=== PATIENT | male | born 1950 | race Caucasian/White ===

== ENCOUNTER 2016-08-20 17:31 | Emergency (ER) | payer MEDICARE, OTHER ==
[~2016-08-20] VITALS: Ht 177.8 cm; Wt 79.5 kg
[~2016-08-20 17:31] MED LIST: ALBU8.5H IH; ATOR40TA28 PO; DSS100 PO; FOSI10 PO; INSLAN SQ; INSU100C6 SQ; METF500T4 PO; METO-325 PO; MIRT15 PO; TEMA15 PO; THERAGRAN M1 TA1 PO; TIOT185 IH; WARF2 PO
[2016-08-20 18:40] LABS: BASOPHILS % (AUTO) 0.5 % (0.0-2.0); EOSINOPHILS % (AUTO) 0.5 % (1.0-6.0); HEMATOCRIT 37.3 % (41-53); HEMOGLOBIN 11.6 g/dL (13.5-17.5); LYMPHOCYTES # (AUTO) 1.4 K/uL (1.0-4.8); LYMPHOCYTES % (AUTO) 10.8 % (22.0-44.0); MEAN CORPUSCULAR HEMOGLOBIN 25.8 pg (26.0-34.0); MEAN CORPUSCULAR VOLUME 83 fL (80-100); MONOCYTES # (AUTO) 0.5 K/uL (0.1-1.0); MONOCYTES % (AUTO) 4.2 % (2.0-9.0); NEUTROPHILS # (AUTO) 10.7 K/uL (1.8-7.7); PLATELET COUNT (AUTO) 354 K/uL (150-450); RED BLOOD CELL COUNT(AUTO) 4.49 MIL/uL (4.50-5.90); RED CELL DISTRIBUTION WIDTH 14.4 % (11.5-14.5); WHITE BLOOD COUNT (AUTO) 12.8 K/uL (4.5-11.0)
[2016-08-20 19:14] LABS: ANION GAP 5 mmol/L (8-16); CALCIUM, TOTAL 8.4 mg/dL (8.8-10.5); CARBON DIOXIDE 34 mmol/L (22-29); CHLORIDE 100 mmol/L (98-107); GLOMERULAR FILTR. RATE CALC > 60 mL/min (>60); POTASSIUM 3.5 mmol/L (3.5-5.1); SODIUM SERUM 139 mmol/L (136-145); UREA NITROGEN, BLOOD 9 mg/dL (7-18)
[2016-08-20 19:20] LABS: ALANINE AMINOTRANSFERASE 16 U/L (12-78); ALBUMIN 2.1 g/dL (3.4-5.0); ASPARTATE AMINOTRANSFERASE 15 U/L (15-37); BILIRUBIN,TOTAL 0.3 mg/dL (0.1-1.0); TOTAL PROTEIN, SERUM 6.8 g/dL (6.4-8.2)
[2016-08-20 19:39] VITALS: BP 104/62
== END 2016-08-20 21:03 | disposition home or self-care (01) ==
LOC: EMS 17:38
DX: J44.9 Chronic obstructive pulmonary disease, unspecified (principal); F32.9 Major depressive disorder, single episode, unspecified; E11.9 Type 2 diabetes mellitus without complications; I10 Essential (primary) hypertension; R47.01 Aphasia; E78.00 Pure hypercholesterolemia, unspecified; I48.91 Unspecified atrial fibrillation; Z86.73 Personal history of transient ischemic attack (TIA), and cerebral infarction without residual deficits; Z79.4 Long term (current) use of insulin
CPT/HCPCS: 36415; 80053; 85025; 99284; G0480; 82962

== ENCOUNTER 2019-05-25 12:44 | Inpatient (IN) | payer MEDICARE, OTHER ==
[~2019-05-25] VITALS: Ht 175.3 cm; Wt 71.2 kg
[~2019-05-25 12:44] MED LIST changes: -ALBU8.5H IH; +ALBU8.5H8 IH; -FOSI10 PO; +FOSI10TA6 PO; +METF-960 PO; -METF500T4 PO; -METO-325 PO; +METO-558 PO; +MIRT-92 PO; -MIRT15 PO; -TEMA15 PO; +TEMA15CA PO
[2019-05-25 12:59] LABS: BASOPHILS % (AUTO) 0.6 % (0.0-2.0); EOSINOPHILS % (AUTO) 0.3 % (1.0-6.0); HEMATOCRIT 36.4 % (41-53); HEMOGLOBIN 10.9 g/dL (13.5-17.5); LYMPHOCYTES # (AUTO) 1.5 K/uL (1.0-4.8); MEAN CORPUSCULAR HEMOGLOBIN 23.5 pg (26.0-34.0); MEAN CORPUSCULAR HGB CONC 29.9 G/dL (31.0-37.0); MEAN CORPUSCULAR VOLUME 79 fL (80-100); MONOCYTES # (AUTO) 0.6 K/uL (0.1-1.0); MONOCYTES % (AUTO) 6.2 % (2.0-9.0); NEUTROPHILS # (AUTO) 7.4 K/uL (1.8-7.7); NEUTROPHILS % (AUTO) 76.9 % (40.0-70.0); PLATELET COUNT (AUTO) 187 K/uL (150-450); RED BLOOD CELL COUNT(AUTO) 4.63 MIL/uL (4.50-5.90); RED CELL DISTRIBUTION WIDTH 19.4 % (11.5-14.5)
[2019-05-25 13:13] LABS: ANION GAP 6 mmol/L (8-16); CALCIUM, TOTAL 9.8 mg/dL (8.8-10.5); CARBON DIOXIDE 33 mmol/L (22-29); CHLORIDE 116 mmol/L (98-107); CREATININE 0.93 mg/dL (0.60-1.30); GLOMERULAR FILTR. RATE CALC > 60 mL/min (>60); GLUCOSE,RANDOM 237 mg/dL (70-110); POTASSIUM 4.1 mmol/L (3.5-5.1); SODIUM SERUM 155 mmol/L (136-145); UREA NITROGEN, BLOOD 23 mg/dL (7-18)
[2019-05-25 13:14] LABS: INR 1.1 (0.9-1.1); PROTHROMBIN TIME 11.4 SEC (9.4-11.6)
[2019-05-25 13:19] LABS: ALANINE AMINOTRANSFERASE 19 U/L (12-78); ALKALINE PHOSPHATASE 88 U/L (46-116); ASPARTATE AMINOTRANSFERASE 13 U/L (15-37); BILIRUBIN,TOTAL 0.4 mg/dL (0.1-1.0); TOTAL PROTEIN, SERUM 7.2 g/dL (6.4-8.2)
[2019-05-25] MEDS ORDERED: LORA-999 PO (13:20)
[2019-05-25] MEDS ORDERED: BISA10SU11 PR (13:20)
[2019-05-25] MEDS ORDERED: APIX5TAB PO (13:20)
[2019-05-25] MEDS ORDERED: OLAN2.5T3 PO (13:20)
[2019-05-25] MEDS ORDERED: CITA10TA68 PO (13:20)
[2019-05-25] MEDS ORDERED: FOSI20TA98 PO (13:28)
[2019-05-25] MEDS ORDERED: CITA-106 PO (13:28)
[2019-05-25] MEDS ORDERED: MULT-29 PO (13:28)
[2019-05-25] MEDS ORDERED: DOCU-275 PO (13:28)
[2019-05-25] MEDS ORDERED: INSU100V42 SQ (13:28)
[2019-05-25] MEDS ORDERED: SODIUM CHLORIDE 0.9% 1,950 ML IV ONE (13:30)
[2019-05-25] MEDS ORDERED: IOVERSOL 350 MG/ML 100 ML VIAL ONE (13:49)
[2019-05-25] MEDS ORDERED: SODIUM CHLORIDE 0.9% 100 ML ONE (13:49)
[2019-05-25] MEDS ORDERED: LEVOFLOXACIN 750 MG/D5% WATER 150 ML IV ONE (14:30)
[2019-05-25 14:50] LABS: LACTIC ACID 2.9 mmol/L (0.4-2.0)
[2019-05-25 15:55] LABS: APPEARANCE,URINE TURBID (CLEAR); BILIRUBIN,URINE NEGATIVE (NEGATIVE); GLUCOSE, URINE (UA) NEGATIVE (NEGATIVE); KETONES,URINE NEGATIVE (NEGATIVE); LEUKOCYTE ESTERASE ,URINE LARGE (NEGATIVE); NITRATE,URINE POSITIVE (NEGATIVE); OCCULT BLOOD,URINE LARGE (NEGATIVE); PH,URINE 5.5 (5.0-8.0); PROTEIN,URINE SEE CONFIRM (NEGATIVE)
[2019-05-25 16:00] LABS: AMPHET/METH SCREEN,URINE NEGATIVE (NEGATIVE); BARBITURATE SCREEN, URINE NEGATIVE (NEGATIVE); BENZODIAZEPINES SCREEN,URINE NEGATIVE (NEGATIVE); CANNABINOID SCREEN,URINE NEGATIVE (NEGATIVE); COCAINE SCREEN,URINE NEGATIVE (NEGATIVE); METHADONE SCREEN, URINE NEGATIVE (NEGATIVE); OPIATE SCREEN,URINE NEGATIVE (NEGATIVE)
[2019-05-25 16:06] LABS: PHENCYCLIDINE SCREEN,URINE NEGATIVE (NEGATIVE)
[2019-05-25 16:10] LABS: SULFOSALICYLIC ACID,URINE 3+ (Negative)
[2019-05-25 16:12] LABS: BACTERIA,URINE Moderate /HPF (None Seen); CALCIUM OXALATE CRYSTALS,UR Few /LPF (None Seen); SQUAMOUS EPITHELIAL CELL,UR Few /LPF (None Seen); WBC,URINE 51-100 /HPF (0-5)
[2019-05-25 21:30] VITALS: BP 118/57
[2019-05-25] MEDS ORDERED: ALBUTEROL SULFATE HFA 90 MCG/PUFF 8 GM INHALER IH PRN ×2 (21:30)
[2019-05-25] MEDS ORDERED: MAGNESIUM HYDROXIDE SUSPENSION 30 ML UDCUP PO PRN (21:30)
[2019-05-25] MEDS ORDERED: MORPHINE SULFATE 2 MG/ML SYRINGE IVP PRN (21:30)
[2019-05-25] MEDS ORDERED: BISACODYL 10 MG RECTAL RECTAL SUPPOSITORY PR PRN (21:30)
[2019-05-25] MEDS ORDERED: HYDROCODONE/ACETAMINOPHEN 5-325 MG TABLET PO PRN (21:30)
[2019-05-25] MEDS ORDERED: ACETAMINOPHEN 325 MG TABLET PO PRN (21:30)
[2019-05-25] MEDS ORDERED: DEXTROSE 5%-WATER 500 ML IV ONE (21:30)
[2019-05-25] MEDS ORDERED: *CLINICAL-LEVOFLOXACIN IVPB DOSING CLINICAL ONE (21:30)
[2019-05-25] MEDS ORDERED: ZOLPIDEM TARTRATE 5 MG TABLET PO PRN (21:30)
[2019-05-25] MEDS ORDERED: ONDANSETRON HCL 4 MG/2 ML VIAL IVP PRN (21:30)
[2019-05-25 23:48] VITALS: BP 115/63
[2019-05-26] MEDS ORDERED: HEPARIN SODIUM,PORCINE 5,000 UNITS/ML VIAL SQ SCH
[2019-05-26 04:50] VITALS: BP 104/64
[2019-05-26 07:08] LABS: BASOPHILS % (AUTO) 0.3 % (0.0-2.0); EOSINOPHILS % (AUTO) 0.4 % (1.0-6.0); HEMATOCRIT 31.7 % (41-53); HEMOGLOBIN 9.6 g/dL (13.5-17.5); LYMPHOCYTES % (AUTO) 10.2 % (22.0-44.0); MEAN CORPUSCULAR HEMOGLOBIN 23.6 pg (26.0-34.0); MEAN CORPUSCULAR HGB CONC 30.3 G/dL (31.0-37.0); MEAN CORPUSCULAR VOLUME 78 fL (80-100); MONOCYTES # (AUTO) 0.8 K/uL (0.1-1.0); MONOCYTES % (AUTO) 8.1 % (2.0-9.0); NEUTROPHILS # (AUTO) 7.8 K/uL (1.8-7.7); PLATELET COUNT (AUTO) 164 K/uL (150-450); RED BLOOD CELL COUNT(AUTO) 4.08 MIL/uL (4.50-5.90); RED CELL DISTRIBUTION WIDTH 19.5 % (11.5-14.5)
[2019-05-26 07:16] LABS: ANION GAP 7 mmol/L (8-16); CALCIUM, TOTAL 8.1 mg/dL (8.8-10.5); CARBON DIOXIDE 30 mmol/L (22-29); CHLORIDE 117 mmol/L (98-107); CREATININE 0.66 mg/dL (0.60-1.30); GLOMERULAR FILTR. RATE CALC > 60 mL/min (>60); GLUCOSE,RANDOM 216 mg/dL (70-110); POTASSIUM 3.2 mmol/L (3.5-5.1); SODIUM SERUM 154 mmol/L (136-145); UREA NITROGEN, BLOOD 21 mg/dL (7-18)
[2019-05-26 08:34] VITALS: BP 129/73
[2019-05-26 11:05] VITALS: BP 119/76
[2019-05-26 11:14] LABS: PHOSPHORUS 2.9 mg/dL (2.5-4.9)
[2019-05-26] MEDS: DOCUSATE SODIUM 100 MG CAPSULE PO SCH ×2 (11:33→21:53)
[2019-05-26] MEDS: METOPROLOL SUCCINATE 50 MG ER TABLET PO SCH (11:33)
[2019-05-26] MEDS: PANTOPRAZOLE SODIUM 40 MG DR TABLET PO SCH (11:33)
[2019-05-26] MEDS: APIXABAN 5 MG TABLET PO SCH ×2 (11:33→21:53)
[2019-05-26] MEDS: ATORVASTATIN CALCIUM 40 MG TABLET PO SCH (11:34)
[2019-05-26 14:04] LABS: GLUCOMETER DEV NAME(LOC) 5N.1; GLUCOSE,POINT OF CARE 214 MG/DL (70-110)
[2019-05-26 15:10] VITALS: BP 113/68
[2019-05-26] MEDS: LEVOFLOXACIN 750 MG/D5% WATER 150 ML IV SCH (15:15)
[2019-05-26 19:58] VITALS: BP 107/63
[2019-05-26] MEDS ORDERED: MAGNESIUM SULFATE 2 GM/WATER 50 ML IV PRN (21:00)
[2019-05-26] MEDS ORDERED: MAGNESIUM SULFATE 4 GM/WATER 100 ML IV PRN (21:00)
[2019-05-26] MEDS ORDERED: DEXTROSE 50%-WATER 25 GM/50 ML SYRINGE IVP PRN (21:00)
[2019-05-26] MEDS: POTASSIUM CHLORIDE 20 MEQ ER TABLET PO PRN (21:52)
[2019-05-26] MEDS: MAGNESIUM OXIDE 400 MG TABLET PO PRN (21:52)
[2019-05-26] MEDS: INSULIN LISPRO 100 UNITS/ML SQ PRN (21:55)
[2019-05-27 00:06] VITALS: BP 111/61
[2019-05-27 01:51] LABS: GLUCOMETER DEV NAME(LOC) 5N.1; GLUCOSE,POINT OF CARE 242 MG/DL (70-110)
[2019-05-27] MEDS: POTASSIUM CHLORIDE 20 MEQ ER TABLET PO PRN ×2 (03:07→11:15)
[2019-05-27 04:59] VITALS: BP 123/56
[2019-05-27 06:28] LABS: BASOPHILS % (AUTO) 0.2 % (0.0-2.0); EOSINOPHILS % (AUTO) 0.5 % (1.0-6.0); HEMATOCRIT 30.3 % (41-53); HEMOGLOBIN 9.2 g/dL (13.5-17.5); LYMPHOCYTES # (AUTO) 1.3 K/uL (1.0-4.8); LYMPHOCYTES % (AUTO) 13.1 % (22.0-44.0); MEAN CORPUSCULAR HEMOGLOBIN 23.5 pg (26.0-34.0); MEAN CORPUSCULAR HGB CONC 30.4 G/dL (31.0-37.0); MEAN CORPUSCULAR VOLUME 77 fL (80-100); MONOCYTES # (AUTO) 0.6 K/uL (0.1-1.0); MONOCYTES % (AUTO) 6.1 % (2.0-9.0); NEUTROPHILS # (AUTO) 7.7 K/uL (1.8-7.7); NEUTROPHILS % (AUTO) 80.1 % (40.0-70.0); PLATELET COUNT (AUTO) 152 K/uL (150-450); RED BLOOD CELL COUNT(AUTO) 3.93 MIL/uL (4.50-5.90); RED CELL DISTRIBUTION WIDTH 19.4 % (11.5-14.5)
[2019-05-27 06:43] LABS: ALBUMIN 2.6 g/dL (3.4-5.0); ANION GAP 8 mmol/L (8-16); CALCIUM, TOTAL 8.7 mg/dL (8.8-10.5); CARBON DIOXIDE 29 mmol/L (22-29); CHLORIDE 116 mmol/L (98-107); CREATININE 0.64 mg/dL (0.60-1.30); GLOMERULAR FILTR. RATE CALC > 60 mL/min (>60); GLUCOSE,RANDOM 223 mg/dL (70-110); POTASSIUM 3.5 mmol/L (3.5-5.1); SODIUM SERUM 153 mmol/L (136-145); UREA NITROGEN, BLOOD 21 mg/dL (7-18)
[2019-05-27] MEDS: INSULIN LISPRO 100 UNITS/ML SQ PRN ×3 (07:23→22:00)
[2019-05-27 07:50] VITALS: BP 110/66
[2019-05-27] MEDS: PANTOPRAZOLE SODIUM 40 MG DR TABLET PO SCH (08:58)
[2019-05-27] MEDS: DOCUSATE SODIUM 100 MG CAPSULE PO SCH ×2 (08:58→21:57)
[2019-05-27] MEDS: ATORVASTATIN CALCIUM 40 MG TABLET PO SCH (08:58)
[2019-05-27] MEDS: METOPROLOL SUCCINATE 50 MG ER TABLET PO SCH (08:58)
[2019-05-27] MEDS: APIXABAN 5 MG TABLET PO SCH ×2 (09:08→21:57)
[2019-05-27 11:09] VITALS: BP 109/67
[2019-05-27 11:34] LABS: GLUCOMETER DEV NAME(LOC) 5S.1; GLUCOSE,POINT OF CARE 197 MG/DL (70-110)
[2019-05-27 11:54] LABS: GLUCOMETER DEV NAME(LOC) 5S.1; GLUCOSE,POINT OF CARE 240 MG/DL (70-110)
[2019-05-27] MEDS: DEXTROSE 5%-WATER 1,000 ML IV SCH (12:12)
[2019-05-27] MEDS: TAMSULOSIN HCL 0.4 MG CAPSULE PO SCH (12:17)
[2019-05-27] MEDS: LEVOFLOXACIN 750 MG/D5% WATER 150 ML IV SCH (15:20)
[2019-05-27 15:34] VITALS: BP 138/54
[2019-05-27 19:54] VITALS: BP 106/67
[2019-05-28] VITALS (7 sets, daily range): BP systolic 90–120; BP diastolic 51–70
[2019-05-28 00:22] LABS: GLUCOMETER DEV NAME(LOC) 5S.1; GLUCOSE,POINT OF CARE 312 MG/DL (70-110)
[2019-05-28] MEDS: DEXTROSE 5%-WATER 1,000 ML IV SCH ×2 (02:45→17:20)
[2019-05-28] MEDS: INSULIN LISPRO 100 UNITS/ML SQ PRN ×4 (06:25→21:22)
[2019-05-28 07:04] LABS: GLUCOMETER DEV NAME(LOC) 5S.1; GLUCOSE,POINT OF CARE 221 MG/DL (70-110)
[2019-05-28 07:20] LABS: BASOPHILS % (AUTO) 0.2 % (0.0-2.0); HEMATOCRIT 28.7 % (41-53); HEMOGLOBIN 8.7 g/dL (13.5-17.5); LYMPHOCYTES # (AUTO) 1.1 K/uL (1.0-4.8); LYMPHOCYTES % (AUTO) 9.5 % (22.0-44.0); MEAN CORPUSCULAR HEMOGLOBIN 23.8 pg (26.0-34.0); MEAN CORPUSCULAR HGB CONC 30.2 G/dL (31.0-37.0); MEAN CORPUSCULAR VOLUME 79 fL (80-100); MONOCYTES # (AUTO) 0.6 K/uL (0.1-1.0); MONOCYTES % (AUTO) 4.9 % (2.0-9.0); NEUTROPHILS % (AUTO) 84.4 % (40.0-70.0); PLATELET COUNT (AUTO) 147 K/uL (150-450); RED BLOOD CELL COUNT(AUTO) 3.64 MIL/uL (4.50-5.90); RED CELL DISTRIBUTION WIDTH 19.1 % (11.5-14.5)
[2019-05-28 07:49] LABS: ANION GAP 6 mmol/L (8-16); CALCIUM, TOTAL 8.3 mg/dL (8.8-10.5); CARBON DIOXIDE 28 mmol/L (22-29); CHLORIDE 112 mmol/L (98-107); CREATININE 0.62 mg/dL (0.60-1.30); GLOMERULAR FILTR. RATE CALC > 60 mL/min (>60); GLUCOSE,RANDOM 218 mg/dL (70-110); POTASSIUM 3.2 mmol/L (3.5-5.1); SODIUM SERUM 146 mmol/L (136-145); UREA NITROGEN, BLOOD 12 mg/dL (7-18)
[2019-05-28] MEDS: PANTOPRAZOLE SODIUM 40 MG DR TABLET PO SCH (09:00)
[2019-05-28] MEDS: DOCUSATE SODIUM 100 MG CAPSULE PO SCH ×2 (09:00→21:14)
[2019-05-28] MEDS: ATORVASTATIN CALCIUM 40 MG TABLET PO SCH (09:00)
[2019-05-28] MEDS: APIXABAN 5 MG TABLET PO SCH ×2 (09:00→21:14)
[2019-05-28] MEDS: METOPROLOL SUCCINATE 50 MG ER TABLET PO SCH (09:00)
[2019-05-28] MEDS: TAMSULOSIN HCL 0.4 MG CAPSULE PO SCH ×2 (09:00→21:14)
[2019-05-28] MEDS: POTASSIUM CHL 10 MEQ/WATER 50 ML IV PRN ×3 (11:18→18:08)
[2019-05-28] MEDS ORDERED: SODIUM CHLORIDE 0.9% 500 ML IV ONE (12:30)
[2019-05-28 13:02] LABS: GLUCOMETER DEV NAME(LOC) 5N.1; GLUCOSE,POINT OF CARE 287 MG/DL (70-110)
[2019-05-28] MEDS ORDERED: SODIUM CHLORIDE 0.9% 0 ML ONE (14:05)
[2019-05-28] MEDS: CefoTEtan DISOD 1 GM/DEXTROSE 50 ML IV SCH (14:37)
[2019-05-29] MEDS: CefoTEtan DISOD 1 GM/DEXTROSE 50 ML IV SCH ×2 (00:16→12:16)
[2019-05-29] MEDS: POTASSIUM CHL 10 MEQ/WATER 50 ML IV PRN ×3 (01:07→04:08)
[2019-05-29] MEDS: MAGNESIUM OXIDE 400 MG TABLET PO PRN ×3 (04:08→13:35)
[2019-05-29 04:44] VITALS: BP 102/57
[2019-05-29] MEDS: INSULIN LISPRO 100 UNITS/ML SQ PRN (05:56)
[2019-05-29 08:01] LABS: GLUCOMETER DEV NAME(LOC) 5S.1; GLUCOSE,POINT OF CARE 205 MG/DL (70-110)
[2019-05-29 08:01] LABS: GLUCOMETER DEV NAME(LOC) 5N.1; GLUCOSE,POINT OF CARE 222 MG/DL (70-110)
[2019-05-29 08:01] LABS: GLUCOMETER DEV NAME(LOC) 5N.1; GLUCOSE,POINT OF CARE 234 MG/DL (70-110)
[2019-05-29 08:03] LABS: POTASSIUM 3.9 mmol/L (3.5-5.1)
[2019-05-29 08:19] VITALS: BP 107/66
[2019-05-29] MEDS: TAMSULOSIN HCL 0.4 MG CAPSULE PO SCH (08:39)
[2019-05-29] MEDS: DOCUSATE SODIUM 100 MG CAPSULE PO SCH (08:39)
[2019-05-29] MEDS: APIXABAN 5 MG TABLET PO SCH (08:39)
[2019-05-29] MEDS: PANTOPRAZOLE SODIUM 40 MG DR TABLET PO SCH (08:39)
[2019-05-29] MEDS ORDERED: ATORVASTATIN CALCIUM 40 MG TABLET PO SCH (09:00)
[2019-05-29] MEDS ORDERED: METOPROLOL SUCCINATE 25 MG ER TABLET PO SCH (09:00)
[2019-05-29] MEDS: DEXTROSE 5%-WATER 1,000 ML IV SCH (09:36)
[2019-05-29 11:12] LABS: BASOPHILS % (AUTO) 0.4 % (0.0-2.0); EOSINOPHILS % (AUTO) 1.1 % (1.0-6.0); HEMOGLOBIN 8.4 g/dL (13.5-17.5); LYMPHOCYTES # (AUTO) 1.1 K/uL (1.0-4.8); LYMPHOCYTES % (AUTO) 13.9 % (22.0-44.0); MEAN CORPUSCULAR HEMOGLOBIN 23.3 pg (26.0-34.0); MEAN CORPUSCULAR VOLUME 78 fL (80-100); MONOCYTES # (AUTO) 0.4 K/uL (0.1-1.0); MONOCYTES % (AUTO) 4.8 % (2.0-9.0); NEUTROPHILS # (AUTO) 6.3 K/uL (1.8-7.7); NEUTROPHILS % (AUTO) 79.8 % (40.0-70.0); PLATELET COUNT (AUTO) 152 K/uL (150-450); RED BLOOD CELL COUNT(AUTO) 3.59 MIL/uL (4.50-5.90)
[2019-05-29 11:14] LABS: ANION GAP 9 mmol/L (8-16); CALCIUM, TOTAL 8.1 mg/dL (8.8-10.5); CARBON DIOXIDE 27 mmol/L (22-29); CHLORIDE 113 mmol/L (98-107); CREATININE 0.61 mg/dL (0.60-1.30); GLOMERULAR FILTR. RATE CALC > 60 mL/min (>60); GLUCOSE,RANDOM 201 mg/dL (70-110); SODIUM SERUM 149 mmol/L (136-145); UREA NITROGEN, BLOOD 8 mg/dL (7-18)
[2019-05-29] MEDS ORDERED: ATOR40TA28 PO (11:16)
[2019-05-29] MEDS ORDERED: CEFO1I IM (11:17)
[2019-05-29] MEDS ORDERED: PANT40TA25 PO (11:18)
[2019-05-29] MEDS ORDERED: TAMS-13 PO (11:19)
[2019-05-29] MEDS ORDERED: ACET-2247 PO (11:20)
[2019-05-29] MEDS ORDERED: MOM30 PO (11:25)
[2019-05-29 11:28] VITALS: BP 123/64
[2019-05-29] MEDS ORDERED: HYDR-4061 PO (11:32)
[2019-05-29] MEDS ORDERED: INSU100V SQ (11:34)
[2019-05-29 11:58] LABS: GLUCOMETER DEV NAME(LOC) 5S.1; GLUCOSE,POINT OF CARE 182 MG/DL (70-110)
[2019-05-29] MEDS ORDERED: SODIUM CHLORIDE 0.9% 250 ML IV ONE (11:59)
== END 2019-05-29 15:35 | DRG 871 ==
LOC: EMS 12:46 → 5N 18:24
PROVIDERS: ADMIT Internal Medicine; ATTEND Internal Medicine
DX: A41.51 Sepsis due to Escherichia coli [E. coli] (principal); G92 Toxic encephalopathy; E43 Unspecified severe protein-calorie malnutrition; E87.2 Acidosis; I48.20 Chronic atrial fibrillation, unspecified; N39.0 Urinary tract infection, site not specified; E87.0 Hyperosmolality and hypernatremia; Z16.12 Extended spectrum beta lactamase (ESBL) resistance; I48.92 Unspecified atrial flutter; G91.9 Hydrocephalus, unspecified; R47.01 Aphasia; E78.5 Hyperlipidemia, unspecified; I10 Essential (primary) hypertension; D64.9 Anemia, unspecified; J44.9 Chronic obstructive pulmonary disease, unspecified; F32.9 Major depressive disorder, single episode, unspecified; E78.00 Pure hypercholesterolemia, unspecified; G47.00 Insomnia, unspecified; G47.33 Obstructive sleep apnea (adult) (pediatric); F01.50 Vascular dementia, unspecified severity, without behavioral disturbance, psychotic disturbance, mood disturbance, and anxiety; R33.9 Retention of urine, unspecified; R62.7 Adult failure to thrive; N40.0 Benign prostatic hyperplasia without lower urinary tract symptoms; E11.9 Type 2 diabetes mellitus without complications; Z68.23 Body mass index [BMI] 23.0-23.9, adult; Z79.01 Long term (current) use of anticoagulants; Z79.4 Long term (current) use of insulin; Z86.73 Personal history of transient ischemic attack (TIA), and cerebral infarction without residual deficits; Z88.0 Allergy status to penicillin; Z87.01 Personal history of pneumonia (recurrent)
CPT/HCPCS: 70496; 70551; 83605; 83735; 84100; 84132; 86850; 86900; 86901; 87040; 87081; 87086; 92610; 93005; 96365; 99291; J1644; J1956; J3480; J3490; J7030; J7040; J7050; J7060